=== PATIENT | male | born 1940 | race Caucasian/White ===

== ENCOUNTER → 2018-03-15 10:30 | Outpatient (CLI) | payer MEDICARE, BC, SELFPAY ==
[2018-03-15 12:47] LABS: Absolute Lymphocyte Count 0.78 X10^3/ul (0.83-4.51); Absolute Neutrophil Count 4.9 X10^3/uL (2.0-7.7); Basophil# 0.02 X10^3/uL; Basophil% 0.3 % (0-1); Eosinophil# 0.24 X10^3/uL; Eosinophils% 3.7 % (0-5); Hematocrit 44.3 % (40-54); Hemoglobin 14.4 g/dl (13.0-16.5); Lymphocyte # 0.78 X10^3/ul (4.0); Lymphocyte % 12.1 % (19-41); Mean Corp Hgb Conc 32.5 g/gl (32-36); Mean Corpuscular Hgb 31.6 pg (27.0-32.0); Mean Corpuscular Volume 97.4 fL (80-94); Mean Platelet Vol. 9.3 fl (6.2-12.0); Monocyte% 7.7 % (0-10); Neutrophil # 4.89 X10^3/uL (2.7-7.7); Neutrophil % 75.7 % (47-70); POSITIVE COUNT NO; POSITIVE DIFFERENTIAL NO; POSITIVE MORPHOLOGY NO; Platelet Count 232 K/mm3 (150-450); RBC Distribution Width CV 13.2 % (11.6-14.6); RBC Distribution Width SD 46.8 fl (35.1-43.9); Red Blood Count 4.55 M/mm3 (4.6-6.2); White Blood Count 6.5 K/mm3 (4.4-11.0)
[2018-03-15 12:59] LABS: Anion Gap 6 (5-15); BUN 24 mg/dL (7-18); BUN/Creat Ratio 31.8 RATIO (10-20); Calcium,Total 8.7 mg/dL (8.5-10.1); Chloride 103 mmol/L (98-107); Creatinine, Serum 0.75 mg/dL (0.70-1.30); EST Glomerular Filtration Rate 107 mL/min (>60); Est Glom Filt Rate - Afr Amer 129 mL/min (>60); Glucose 129 mg/dL (74-106); Potassium 3.7 mmol/L (3.5-5.1); Sodium Level 141 mmol/L (136-145); T4 Free Direct 1.19 ng/dL (0.76-1.46); Thyroid Stim Hormone (TSH) 2.34 uIU/mL (0.358-3.74)
[2018-03-15 13:07] LABS: Microalbumin,Random Urine 11.3 mg/L (NO RANGE EST.); Microalbumin:Creatinine Ratio 17.8 mg/g CRE (<30 mg/g CRE)
--- OUTSIDE RECORDS SUMMARY | 2018-05-01 11:01 | XMS RPT_ITS ---
:1940 Author Organization [facility] Care Team Providers Name Role Phone SEA FRIAS (HOSIERY OPERATOR) Referring Unavailable SEA FRIAS (HOSIERY OPERATOR) Referring Unavailable SEA FRIAS (HOSIERY OPERATOR) Attending Unavailable FRANCIS NOEL Referring Unavailable Nitish Fraser Attending Unavailable Nitish Fraser Primary Care Unavailable PROBLEMS PROBLEMS DATE TYPE CONDITION / CODE ATTENDING STATUS SOURCE 03/15/2018 Unknown E03.9 - Nitish Fraser Active [place] Hypothyroidism, Community unspecified / Hospital E03.9(ICD-10) Repository 03/15/2018 Unknown E11.9 - Type 2 Nitish Fraser Active [place] diabetes mellitus [facility] without Hospital complications / Repository E11.9(ICD-10) 03/15/2018 Unknown I10 - Essential Nitish Fraser Active [place] (primary) Community hypertension / Hospital I10(ICD-10) Repository 02/01/2012 Active Malignant neoplasm Active [facility] of prostate / [facility] [place] C61(ICD-10) Repository 10/05/2017 Active Encounter for Active [facility] follow-up [facility] [place] examination after Repository completed treatment for malignant neoplasm / Z08(ICD-10) 10/05/2017 Active Personal history of Active [facility] malignant neoplasm [facility] [place] of prostate / Repository Z85.46(ICD-10) PROCEDURES PROCEDURES No Procedure Records FoundRESULTS RESULTS CBC W/DIFF, AUTOMATED Collected: 03/15/2018 Status: F Source: [place] 10:34 AM [facility] REPOSITORY TYPE CODE TESTS RESULT OUT OF RANGE REFERENCE UNITS LAB L100.1000 4.4-11.0 K/mm3 Normal WBC 6.5 LAB L100.1200 4.6-6.2 M/mm3 Low RBC 4.55 LAB L100.1300 13.0-16.5 g/dl Normal HGB 14.4 LAB L100.1400 40-54 % Normal HCT 44.3 LAB L100.1500 80-94 fL High MCV 97.4 LAB L100.1600 27.0-32.0 pg Normal MCH 31.6 LAB L100.1700 32-36 g/gl Normal MCHC 32.5 LAB L100.1810 11.6-14.6 % Normal RDW CV 13.2 LAB L100.1820 35.1-43.9 fl High RDW SD 46.8 LAB L100.1900 150-450 K/mm3 Normal PLT 232 LAB L100.2000 6.2-12.0 fl Normal MPV 9.3 LAB L100.2100 47-70 % High NEUT% 75.7 LAB L100.2200 19-41 % Low LY% 12.1 LAB L100.2300 0-10 % Normal MONO% 7.7 LAB L100.2400 0-5 % Normal EO% 3.7 LAB L100.2500 0-1 % Normal BASO% 0.3 LAB L100.2550 0.0-0.9 % Normal IM GRAN % 0.500 Result Comment: IG% - Immature Granulocytes (promyelocytes, myelocytes and metamyelocytes) > 1% indicates that a LEFT SHIFT is Present. LAB L100.2620 2.0-7.7 X10 3/uL Normal Absolute Neut 4.9 LAB L100.2720 0.83-4.51 X10 3/ul Low Absolute Lymph 0.78 Performed By: #### L100.0100 #### [facility] [address] [place] [address]. [place], [place], [id number] BASIC METABOLIC Collected: 03/15/2018 Status: F Source: CARRIE PROFILE ([facility]) 10:34 AM [facility] REPOSITORY TYPE CODE TESTS RESULT OUT OF RANGE REFERENCE UNITS LAB L501.0100 74-106 mg/dL High GLU 129 Result Comment: Fasting Glucose result greater than or equal to 126 mg/dL suggests DIABETES MELLITUS per A.D.A. criteria. Please note revised GLUCOSE reference range effective 2017. LAB L501.1000 7-18 mg/dL High BUN 24 LAB L501.1100 0.70-1.30 mg/dL Normal CREAT,SERUM 0.75 Result Comment: The validity of the calculated GFR AND GFRAA in patients over 70 years has not been determined. Clinical correlation is essential. LAB L501.1110 >60 mL/min Normal EST GFR 107 Result Comment: Non- GFR Calc LAB L501.1115 >60 mL/min Normal EST GFR - AA 129 Result Comment: GFR Calc LAB L501.1300 10-20 RATIO High BUN/CRE 31.8 LAB L501.2200 8.5-10.1 mg/dL CA Normal 8.7 LAB L501.5300 136-145 mmol/L NA Normal 141 LAB L501.5600 3.5-5.1 mmol/L K Normal 3.7 LAB L501.5900 98-107 mmol/L CL Normal 103 LAB L501.6100 21.0-32.0 mmol/L Normal CO2 32.0 LAB L501.6200 5-15 Normal GAP 6 Performed By: #### L500.2500, L501.9520, L506.0400 #### [facility] [address] [place], [address] THYROID STIM HORMONE Collected: 03/15/2018 Status: F Source: [place] ([facility]) 10:34 AM [facility] REPOSITORY TYPE CODE TESTS RESULT OUT OF RANGE REFERENCE UNITS LAB L501.9520 0.358-3.74 uIU/mL Normal TSH 2.34 Performed By: #### L500.2500, L501.9520, L506.0400 #### [facility] [address] [facility] [place], [address] T4 FREE DIRECT Collected: 03/15/2018 Status: F Source: [place] 10:34 AM [facility] REPOSITORY TYPE CODE TESTS RESULT OUT OF RANGE REFERENCE UNITS LAB L506.0400 0.76-1.46 ng/dL Normal T4 FREE 1.19 DIRECT Performed By: #### L500.2500, L501.9520, L506.0400 #### [facility] [address] [place], [address] MICROALB:CREAT Collected: 03/15/2018 Status: F Source: [place]KA RATIO,RANDOM UR 10:34 AM [facility] REPOSITORY TYPE CODE TESTS RESULT OUT OF RANGE REFERENCE UNITS LAB L501.1200 NO RANGE EST. mg/dL Normal UR CREAT 63.60 LAB L502.0500 NO RANGE EST. mg/L Normal 11.3 MICROALBUMIN ,UR LAB L502.0600 <30 mg/g CRE mg/g CRE Normal 17.8 MALB:CREAT Performed By: #### L502.0250 #### [facility] [address], [address] PROGRESS Observed: 10/12/2017 Status: COMPLETED Source: [place] 9:17 AM [facility] REPOSITORY HNO ID: [id number] Author: Sea (Aligning Checker) [place] Service: (none) Author Type: Nurse Practitioner Type: Progress Notes Filed: 10/12/2017 10:48 AM Note Text: Radiation Oncology - Follow Up Note PATIENT NAME: Scottie Mora PATIENT DIAGNOSIS: Mr. Mora is a pleasant 76 yo gentleman with adenocarcinoma of the prostate, initial PSA of 1.2 ng/mL, Piedad of 6, status post I-125 seed implantation on 12/30/2010. INTERVAL HISTORY: Scottie presents for routine follow-up 12 months after having last been seen. He continues to do well clinically with no residual effects of his radiation therapy PSA HISTORY: PSA (ng/mL) Date Value 10/05/2017 0.05 10/02/2016 0.04 09/27/2015 0.08 09/24/2014 0.08 ?02/20/2014 ? 0.21 ?10/04/2013 ? 0.22 03/17/13? 0.34 09/13/12? 0.48 02/03/12? 0.82 07/28/11? 1.43 ALLERGIES No Known Allergies levothyroxine (SYNTHROID) 100 mcg tablet Take 1 tablet by mouth daily before breakfast. sildenafil (VIAGRA) 100 mg tablet Take 1 tablet by mouth as needed. aspirin, enteric coated (ASPIRIN, ENTERIC COATED) 81 mg EC tablet Take 81 mg by mouth once daily. lovastatin (MEVACOR) 20 mg tablet Take 1 tablet by mouth daily at bedtime. For cholesterol. hydrochlorothiazide (HYDRODIURIL, ESIDRIX) 12.5 mg tablet Take 1 tablet by mouth once daily. citalopram (CELEXA) 20 mg tablet Take 1 tablet by mouth once daily. metFORMIN ER (GLUCOPHAGE XR) 500 mg 24 hr tablet Take 1 tablet by mouth daily with breakfast. blood sugar diagnostic (BLOOD GLUCOSE TEST) test strip Test blood sugar(s) 1 time daily. Dx: 277.7 Insulin: No REVIEW OF SYSTEMS: D/N = 5-6/0 Hematuria: No Dysuria: No Incontinence: No Urgency: none Catheter use: No Medications to aid urination: none - AUA Questionnaire (symptoms within the past 1 month) Incomplete emptyin (not at all) Frequency (within 2 hours): 0 (not at all) Intermittency: 0 (not at all) Urgency: 0 (not at all) Weak stream: 0 (not at all) Strainin (not at all) Nocturia: 0 (none) - Total AUA Score: 0/35 Bowel movement frequency: 1-2/day Bowel movement quality: normal Blood per rectum: No Last colonoscopy: 2014 Sexual activity: Able to maintain erections with medications Androgen deprivation: Never. PHYSICAL EXAM: BP 130/73 Pulse 77 Temp 36.7 ?C (98 ?F) (Oral) Resp 20 Wt 92.1 kg (203 lb) SpO2 96% BMI 29.34 kg/m? KPS: 90 General Appearance: Alert and oriented. No acute distress. Rectal exam is deferred. ASSESSMENT Mr. Mora is a pleasant 76 yo gentleman with adenocarcinoma of the prostate, initial PSA of 1.2 ng/mL, Piedad of 6, status post I-125 seed implantation on 12/30/2010. Seng continues to do well clinically with no residual effects of his radiation therapy. His PSA continues to remain stable. We spent 15 minutes total face to face , greater than 50% of the time was spent in discussion of his ongoing post radiation follow up. We reviewed current medications for update. We discussed exercise/diet recommendations for increased aerobic fitness and weight control. He does not smoke cigarettes and drinks alcohol moderately.All questions answered at this appointment. ? PLAN: We will see him again in October 2018 with a PSA. Signed by: Sea Frias APRN.JAISON cc: To use this Smartlink, specify the provider ID whose address you want to display, e.g., .PROVADDR[1 (where 1 is the provider ID). Francis Noel MD [address] [facility] [address] CNOV Observed: 10/12/2017 Status: COMPLETED Source: JESSUP 8:45 AM [facility] REPOSITORY Office Visit (RADTMN) SCOTTIE MORA ([id number]) 1940 M Date Time Provider Department 10/12/17 8:45 AM SEA FRIAS (JAISON) RADTMN During your visit today, we recorded the following information about you: Temperature Pulse Respiration Blood pressure 98 degrees 77/minute 20/minute 130/73 Weight 92.1 kg Sea Frias APRN.CNP 10/12/2017 10:48 AM Signed Radiation Oncology - Follow Up Note PATIENT NAME: Scottie Mora PATIENT DIAGNOSIS: Mr. Mora is a pleasant 76 yo gentleman with adenocarcinoma of the prostate, initial PSA of 1.2 ng/mL, [place] of 6, status post I-125 seed implantation on 12/30/2010. INTERVAL HISTORY: Scottie presents for routine follow-up 12 months after having last been seen. He continues to do well clinically with no residual effects of his radiation therapy PSA HISTORY: PSA (ng/mL) Date Value 10/05/2017 0.05 10/02/2016 0.04 09/27/2015 0.08 09/24/2014 0.08 ?02/20/2014 ? 0.21 ?10/04/2013 ? 0.22 03/17/13? 0.34 09/13/12? 0.48 02/03/12? 0.82 07/28/11? 1.43 ALLERGIES No Known Allergies levothyroxine (SYNTHROID) 100 mcg tablet Take 1 tablet by mouth daily before breakfast. sildenafil (VIAGRA) 100 mg tablet Take 1 tablet by mouth as needed. aspirin, enteric coated (ASPIRIN, ENTERIC COATED) 81 mg EC tablet Take 81 mg by mouth once daily. lovastatin (MEVACOR) 20 mg tablet Take 1 tablet by mouth daily at bedtime. For cholesterol. hydrochlorothiazide (HYDRODIURIL, ESIDRIX) 12.5 mg tablet Take 1 tablet by mouth once daily. citalopram (CELEXA) 20 mg tablet Take 1 tablet by mouth once daily. metFORMIN ER (GLUCOPHAGE XR) 500 mg 24 hr tablet Take 1 tablet by mouth daily with breakfast. blood sugar diagnostic (BLOOD GLUCOSE TEST) test strip Test blood sugar(s) 1 time daily. Dx: 277.7 Insulin: No REVIEW OF SYSTEMS: D/N = 5-6/0 Hematuria: No Dysuria: No Incontinence: No Urgency: none Catheter use: No Medications to aid urination: none - AUA Questionnaire (symptoms within the past 1 month) Incomplete emptyin (not at all) Frequency (within 2 hours): 0 (not at all) Intermittency: 0 (not at all) Urgency: 0 (not at all) Weak stream: 0 (not at all) Strainin (not at all) Nocturia: 0 (none) - Total AUA Score: 0/35 Bowel movement frequency: 1-2/day Bowel movement quality: normal Blood per rectum: No Last colonoscopy: 2014 Sexual activity: Able to maintain erections with medications Androgen deprivation: Never. PHYSICAL EXAM: BP 130/73 Pulse 77 Temp 36.7 ?C (98 ?F) (Oral) Resp 20 Wt 92.1 kg (203 lb) SpO2 96% BMI 29.34 kg/m? KPS: 90 General Appearance: Alert and oriented. No acute distress. Rectal exam is deferred. ASSESSMENT Mr. Mora is a pleasant 76 yo gentleman with adenocarcinoma of the prostate, initial PSA of 1.2 ng/mL, Piedad of 6, status post I-125 seed implantation on 12/30/2010. Seng continues to do well clinically with no residual effects of his radiation therapy. His PSA continues to remain stable. We spent 15 minutes total face to face , greater than 50% of the time was spent in discussion of his ongoing post radiation follow up. We reviewed current medications for update. We discussed exercise/diet recommendations for increased aerobic fitness and weight control. He does not smoke cigarettes and drinks alcohol moderately.All questions answered at this appointment. ? PLAN: We will see him again in October 2018 with a PSA. Signed by: Sea Frias APRN.HOSIERY OPERATOR cc: To use this Smartlink, specify the provider ID whose address you want to display, e.g., .PROVADDR[1 (where 1 is the provider ID). Francis Noel MD [id number] [facility] [address] Referring Provider: FRANCIS NOEL [[id number]] Allergies As of Date: 10/12/2017 (No Known Allergies) Date Reviewed: 10/12/2017 Reviewed by: Bettie (Marko) Ricky - Fully Assessed Reason for Visit: Recheck [92] Reason For Visit History Recorded Primary Visit Diagnosis:Malignant neoplasm of prostate (HCC) [C61] Other Visit Diagnosis:Encounter for follow-up surveillance of prostate cancer [Z08, Z85.46] Order(s):PSA/PROSTSPECAG DIAG [SQPSA] Order #: [id number] FUTURE Prescriptions as of 10/12/2017 Sig: LEVOTHYROXINE 100 MCG TABLET Take 1 tablet by mouth daily * SILDENAFIL 100 MG TABLET Take 1 tablet by mouth as nee* ASPIRIN 81 MG TABLET,DELAYED * Take 81 mg by mouth once arlene* LOVASTATIN 20 MG TABLET Take 1 tablet by mouth daily * HYDROCHLOROTHIAZIDE 12.5 MG T* Take 1 tablet by mouth once d* CITALOPRAM 20 MG TABLET Take 1 tablet by mouth once d* METFORMIN ER 500 MG TABLET,EX* Take 1 tablet by mouth daily * BLOOD SUGAR DIAGNOSTIC STRIPS Test blood sugar(s) 1 time da* Problem List As Of Date 10/12/2017 Noted Resolved Acute prostatitis [N41.0] INVALID FOR*02/01/2012 Chronic prostatitis [N41.1] INVALID FOR*02/01/2012 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 Urinary Obstruction, Unspecified [N13.9] INVALID FOR*02/01/2012 Nodular Prostate with Urinary Obstruction [N40.*INVALID FOR*02/01/2012 More... Nodular Prostate without Urinary Obstruction [N*INVALID FOR*02/01/2012 More... Hyperlipidemia [E78.5] INVALID FOR* Priority: Severe More... Hypothyroidism [E03.9] INVALID FOR* Priority: Moderate Malignant neoplasm of prostate [C61] INVALID FOR* Priority: A More... Primary localized osteoarthrosis, lower leg [M1*INVALID FOR* More... Erectile dysfunction [N52.9] INVALID FOR* Dysmetabolic syndrome [E88.81] Vitamin d deficiency [E55.9] Follow-up and Disposition History Recorded Encounter Status:Closed by SEA FRIAS CNP on 10/12/17 PSA, DIAGNOSTIC Collected: 10/05/2017 Status: F Source: [place] 9:30 AM [facility] REPOS[facility] TYPE CODE TESTS RESULT OUT OF REFERENCE UNITS RANGE LAB PSA 0.00-2.59 ng/mL PSA, Diagnostic 0.05 Result Comment: Total PSA test methodology used is the Electrochemiluminescence Immunoassay. Performed By: #### PSA #### [facility] [address] [place], [place] [address] ALLERGIES ALLERGIES DATE TYPE / CODE NAME / CODE REACTION SEVERITY SOURCE Drug NO KNOWN [facility] Class/37602 ALLERGIES [facility] [place] 1003(SNOMED Repository CT) ENCOUNTERS ENCOUNTERS ADMIT/DISCHARGE ACCOUNT ADMITTING ENCOUNTER LOCATION SOURCE NUMBER CLASS 03/15/2018 [id number] [facility] ing:BFHLAB Repository 10/12/2017/10/14/19 [id number] Ambulatory [address] Repository 10/05/2017/10/06/19 [id number] Ambulatory [address] Repository 10/05/2017 [id number] Ambulatory [facility] Repository PAYERS PAYERS ENCOUNTER GUARANTOR PAYER SUBSCRIBER SOURCE 03/15/2018 Scottie Mora491 Primary Scottie Brennan [address] Insurance:MEDICARE [place]OB: Community [id number]: 330) PART A BPolic [id number] [phone] () Number: Repository [id number] Date:2018-03-15 03/15/2018 Secondary Scottie Brennan Insurance:ANTHEMPolic [place]DOB: Community y Number: [id number] [id number] Repository Date:[id number] [address]DO: 03/15/2018 Tertiary NOT GIVENDAYSI [place] Insurance:SELF PAY [facility] Number: Effective Repository Date:2018-03-15
== END ==
PROVIDERS: Family Provider Family Medicine; PCP Family Medicine; Visit Provider Family Medicine
DX: E11.9 Type 2 diabetes mellitus without complications (principal); I10 Essential (primary) hypertension; E03.9 Hypothyroidism, unspecified
CPT/HCPCS: 36415; 80048; 82043; 82570; 84439; 84443; 85025

== ENCOUNTER → 2019-03-17 13:36 | Outpatient (CLI) | payer MEDICARE, BC, SELFPAY ==
[2019-03-17 15:29] LABS: Absolute Lymphocyte Count 0.88 X10^3/uL (0.83-4.51); Basophil# 0.03 X10^3/uL; Basophil% 0.4 % (0-1); Eosinophil# 0.25 X10^3/uL; Eosinophils% 3.7 % (0-5); Hematocrit 44.4 % (40-54); Hemoglobin 14.7 g/dL (13.0-16.5); Lymphocyte # 0.88 X10^3/ul (4.0); Lymphocyte % 13.1 % (19-41); Mean Corp Hgb Conc 33.1 g/dL (32-36); Mean Corpuscular Hgb 31.7 pg (27.0-32.0); Mean Corpuscular Volume 95.9 fL (80-94); Mean Platelet Vol. 9.5 fl (6.2-12.0); Monocyte# 0.48 X10^3/uL; Monocyte% 7.2 % (0-10); NRBC Flagged by Analyzer 0 % (0-5); Neutrophil # 5.02 X10^3/uL (2.7-7.7); Neutrophil % 74.9 % (47-70); Platelet Count 245 K/mm3 (150-450); RBC Distribution Width CV 12.6 % (11.6-14.6); RBC Distribution Width SD 45.1 fl (35.1-43.9); Red Blood Count 4.63 M/mm3 (4.6-6.2); White Blood Count 6.7 K/mm3 (4.4-11.0)
[2019-03-17 15:50] LABS: Anion Gap 3 (5-15); BUN 15 mg/dL (7-18); BUN/Creat Ratio 19.5 RATIO (10-20); Calcium,Total 8.7 mg/dL (8.5-10.1); Chloride 105 mmol/L (98-107); Creatinine, Serum 0.77 mg/dL (0.70-1.30); EST Glomerular Filtration Rate 104 mL/min (>60); Est Glom Filt Rate - Afr Amer 126 mL/min (>60); Glucose 124 mg/dL (74-106); Potassium 3.3 mmol/L (3.5-5.1); Sodium Level 139 mmol/L (136-145); Thyroid Stim Hormone (TSH) 2.53 uIU/mL (0.358-3.74)
== END ==
PROVIDERS: Family Provider Family Medicine; PCP Family Medicine; Visit Provider Family Medicine
DX: E11.9 Type 2 diabetes mellitus without complications (principal); E78.5 Hyperlipidemia, unspecified; E03.9 Hypothyroidism, unspecified
CPT/HCPCS: 36415; 80048; 84443; 85025

== ENCOUNTER → 2020-03-20 14:46 | Outpatient (CLI) | payer MEDICARE, BC, SELFPAY ==
[2020-03-20 17:34] LABS: Absolute Neutrophil Count 4.4 X10^3/uL (2.0-7.7); Basophil# 0.03 X10^3/uL; Basophil% 0.5 % (0-1); Eosinophil# 0.18 X10^3/uL; Hemoglobin 14.3 g/dL (13.0-16.5); Lymphocyte % 14.9 % (19-41); Mean Corp Hgb Conc 32.5 g/dL (32-36); Mean Corpuscular Hgb 30.4 pg (27.0-32.0); Mean Corpuscular Volume 93.6 fL (80-94); Mean Platelet Vol. 9.1 fl (6.2-12.0); Monocyte# 0.53 X10^3/uL; Monocyte% 8.8 % (0-10); NRBC Flagged by Analyzer 0 % (0-5); Neutrophil # 4.35 X10^3/uL (2.7-7.7); Neutrophil % 72.1 % (47-70); Platelet Count 290 K/mm3 (150-450); RBC Distribution Width CV 12.7 % (11.6-14.6); RBC Distribution Width SD 43.8 fl (35.1-43.9)
[2020-03-20 18:03] LABS: Anion Gap 5 (5-15); BUN 17 mg/dL (7-18); BUN/Creat Ratio 20.5 RATIO (10-20); Calcium,Total 9.5 mg/dL (8.5-10.1); Chloride 102 mmol/L (98-107); Cholesterol 193 mg/dL (200); Creatinine, Serum 0.83 mg/dL (0.70-1.30); EST Glomerular Filtration Rate 95 mL/min (>60); Est Glom Filt Rate - Afr Amer 115 mL/min (>60); Glucose 131 mg/dL (74-106); High Density Lipoprotein 41 mg/dL; PSA,Total- Diagnostic 0.05 ng/mL (0.0-4.0); Potassium 3.6 mmol/L (3.5-5.1); Sodium Level 138 mmol/L (136-145); Thyroid Stim Hormone (TSH) 3.63 uIU/mL (0.358-3.74); Triglycerides 125 mg/dL; Very Low Density Lipoprotein 25 mg/dL (5-40)
== END ==
PROVIDERS: PCP Family Medicine; Visit Provider Family Medicine
DX: E11.9 Type 2 diabetes mellitus without complications (principal); I10 Essential (primary) hypertension; E03.9 Hypothyroidism, unspecified; E78.5 Hyperlipidemia, unspecified; C61 Malignant neoplasm of prostate
CPT/HCPCS: 36415; 80048; 80061; 84153; 84443; 85025